=== PATIENT | female | born 1980 | race Caucasian/White ===

== ENCOUNTER 2016-02-26 14:28 | Emergency (ER) | payer OTHER ==
[~2016-02-26] VITALS: Ht 172.7 cm; Wt 119.1 kg
[~2016-02-26 14:28] MED LIST: ADVIL200 MG PO; ATORVASTATIN CA40 MG PO; AUGMENTIN875 MG PO; Ambien PO; BUSPAR10 MG PO; BUSPAR15 MG PO; BUSPIRONE HCL10 MG PO; Buspar PO; CYMBALTA30 MG PO; CYMBALTA60 MG PO; Cymbalta PO; DICYCLOMINE HCL20 MG PO; DULOXETINE HCL60 MG PO; FETZIMA40 MG PO; FETZIMA80 MG PO; FLONASE16 G1 BOTH NARES; GRALISE600 MG PO; KLONOPIN0.5 M1 PO; KLONOPIN1 MG PO; LEVOTHYROXINE125 MCG PO; LEVOTHYROXINE150 MCG PO; LIPITOR40 MG PO; LITHIUM CARBON300 MG PO; LOPRESSOR50 MG PO; Levothroid,Synthroid PO; Lopressor PO; METOPROLOL SUCC50 MG PO; MOTRIN600 MG PO; NAPROSYN500 MG PO; NEURONTIN100 MG PO; NEURONTIN300 MG PO; NEURONTIN600 MG PO; OXCARBAZEPINE300 MG PO; QUETIAPINE FUM200 MG PO; SEROQUEL100 MG PO; SEROQUEL200 MG PO; SEROQUEL50 MG PO; SYNTHROID150 MCG PO; TRILEPTAL300 MG PO; TYLENOL EXTRA500 MG PO; ULTRAM50 MG PO; WELLBUTRIN SR150 MG PO; WELLBUTRIN XL300 MG PO; Wellbutrin PO; Wellbutrin SR PO
[2016-02-26 15:14] LABS: HEMATOCRIT 41.9 % (36.0-46.0); MCH 30.7 PG (29.0-34.0); MCHC 32.9 G/DL (30.0-36.0); MCV 93.1 FL (83-99); MEAN PLAT.VOLUME 8.7 uM^3 (9.5-12.4); PLATELET COUNT 330 K/uL (156-360); RBC DIS.WIDTH-SD 42.8 % (39-53); WHITE BLOOD COUNT 7.7 K/uL (4.1-10.2)
[2016-02-26 15:26] LABS: CHLORIDE 108 mEq/L (99-109); POTASSIUM 4.5 mEq/L (3.7-5.4); SODIUM 142 mEq/L (136-147)
[2016-02-26 15:28] LABS: GLUCOSE 118 mg/dL (70-99)
[2016-02-26 15:29] LABS: ANION GAP 9 MEQ/L (2-14)
[2016-02-26 15:32] LABS: GFR ESTIMATE (CALCULATED) > 59 mL/min/
[2016-02-26 15:33] LABS: UREA NITROGEN (BUN) 8 mg/dL (9-23)
[2016-02-26] MEDS ORDERED: TESSALON PERLE100 MG PO (17:15)
[2016-02-26] MEDS ORDERED: PREDNISONE20 MG PO (17:15)
[2016-02-26] MEDS ORDERED: PHENERGAN DM SYR1 ML PO (17:29)
[2016-02-26 17:30] VITALS: BP 105/58
== END 2016-02-26 17:47 | disposition home or self-care (01) ==
LOC: EME 14:28
DX: J06.9 Acute upper respiratory infection, unspecified (principal); I10 Essential (primary) hypertension; E78.5 Hyperlipidemia, unspecified; G89.29 Other chronic pain; E03.9 Hypothyroidism, unspecified; Z87.891 Personal history of nicotine dependence
CPT/HCPCS: 71020; 80048; 85027; 94640; 99281; 99284

== ENCOUNTER 2016-02-29 15:20 | Emergency (ER) | payer OTHER ==
[~2016-02-29] VITALS: Ht 172.7 cm; Wt 117.9 kg
[~2016-02-29 15:20] MED LIST changes: +PHENERGAN DM SYR1 ML PO; +PREDNISONE20 MG PO; +TESSALON PERLE100 MG PO
[2016-02-29 16:04] LABS: HEMATOCRIT 41.9 % (36.0-46.0); MCH 30.8 PG (29.0-34.0); MCHC 33.4 G/DL (30.0-36.0); MCV 92.3 FL (83-99); PLATELET COUNT 361 K/uL (156-360); RBC DIS.WIDTH-CV 13.3 % (11.8-14.6); RBC DIS.WIDTH-SD 43.2 % (39-53); RED BLOOD COUNT 4.54 M/uL (3.80-5.20)
[2016-02-29 16:05] LABS: WHITE BLOOD COUNT 12.8 K/uL (4.1-10.2)
[2016-02-29 16:07] LABS: CHLORIDE 106 mEq/L (99-109); POTASSIUM 4.4 mEq/L (3.7-5.4); SODIUM 140 mEq/L (136-147)
[2016-02-29 16:09] LABS: GLUCOSE 117 mg/dL (70-99)
[2016-02-29 16:10] LABS: ANION GAP 11 MEQ/L (2-14)
[2016-02-29 16:12] LABS: SERUM ETHYL ALCOHOL < 10 mg/dL
[2016-02-29 16:13] LABS: GFR ESTIMATE (CALCULATED) > 59 mL/min/; UREA NITROGEN (BUN) 14 mg/dL (9-23)
[2016-02-29 17:21] LABS: AMPHETAMINE NEGATIVE (500 ng/mL); BARBITURATES NEGATIVE (200 ng/mL); BENZODIAZEPINES NEGATIVE (150 ng/mL); COCAINE NEGATIVE (150 ng/mL); INTERNAL CONTROLS VALID? YES; METHADONE NEGATIVE (200 ng/mL); METHAMPHETAMINE NEGATIVE (500 ng/mL); OPIATES (MORPHINE) NEGATIVE (100 ng/mL); OXYCODONE NEGATIVE (100 ng/mL); PHENCYCLIDINE NEGATIVE (25 ng/mL); PROPOXYPHENE NEGATIVE (300 ng/mL); THC CANNABINOIDS NEGATIVE (50 ng/mL); TRICYCLIC ANTIDEPRESSANTS NEGATIVE (300 ng/mL)
[2016-02-29 23:25] VITALS: BP 115/80
== END 2016-02-29 23:37 | disposition home or self-care (01) ==
LOC: EME 15:20
DX: F33.2 Major depressive disorder, recurrent severe without psychotic features (principal); R45.851 Suicidal ideations; F60.3 Borderline personality disorder; E78.5 Hyperlipidemia, unspecified; I10 Essential (primary) hypertension; Z91.5 Personal history of self-harm; E03.9 Hypothyroidism, unspecified; Z88.6 Allergy status to analgesic agent
CPT/HCPCS: 80048; 85027; 90832; 99281; 99285; G0480

== ENCOUNTER 2016-03-02 18:28 | Inpatient (IN) | payer OTHER ==
[~2016-03-02] VITALS: Ht 172.7 cm; Wt 116.7 kg
[2016-03-02] MEDS ORDERED: PROAIR HFA8.5 GM IH (21:55)
[2016-03-02 22:06] LABS: CHLORIDE 107 mEq/L (99-109); POTASSIUM 4.1 mEq/L (3.7-5.4); SODIUM 141 mEq/L (136-147)
[2016-03-02 22:08] LABS: GLUCOSE 101 mg/dL (70-99)
[2016-03-02 22:09] LABS: ANION GAP 13 MEQ/L (2-14)
[2016-03-02 22:10] LABS: TOTAL BILIRUBIN 0.8 mg/dL (0.0-1.0)
[2016-03-02 22:11] LABS: SERUM ETHYL ALCOHOL < 10 mg/dL
[2016-03-02 22:12] LABS: ALKALINE PHOSPHATASE 89 IU/L (3-129); GFR ESTIMATE (CALCULATED) > 59 mL/min/
[2016-03-02 22:13] LABS: UREA NITROGEN (BUN) 15 mg/dL (9-23)
[2016-03-02 22:18] LABS: EOSINOPHIL (%) 1.2 % (0-5); EOSINOPHIL COUNT 0.1 K/uL (0-0.3); HEMATOCRIT 39.9 % (36.0-46.0); IMMATURE GRANULOCYTE (%) 0.2 % (0.0-0.7); IMMATURE GRANULOCYTE COUNT 0.2 K/uL; LYMPHOCYTE COUNT 2.6 K/uL (1.0-2.8); MCH 33.7 PG (29.0-34.0); MCHC 35.8 G/DL (30.0-36.0); MCV 94.1 FL (83-99); MEAN PLAT.VOLUME 9.3 uM^3 (9.5-12.4); MONOCYTE (%) 5.4 % (3-12); MONOCYTE COUNT 0.4 K/uL (0-0.8); NEUTROPHIL (%) 60.9 % (45-76); PLATELET COUNT 265 K/uL (156-360); RBC DIS.WIDTH-CV 13.1 % (11.8-14.6); RBC DIS.WIDTH-SD 41.9 % (39-53); RED BLOOD COUNT 4.24 M/uL (3.80-5.20)
[2016-03-02 22:19] LABS: WHITE BLOOD COUNT 8.2 K/uL (4.1-10.2)
[2016-03-02 22:23] LABS: QUANTITATIVE HCG < 4.0 MIU/ML
[2016-03-02 22:40] VITALS: BP 147/62
[2016-03-02 22:43] VITALS: BP 147/62
[2016-03-02] MEDS ORDERED: DEPAKOTE ER250 MG PO (22:47)
[2016-03-03 07:52] VITALS: BP 107/65
[2016-03-03 15:32] VITALS: BP 109/72
[2016-03-03 21:25] VITALS: BP 111/80
[2016-03-04 07:44] VITALS: BP 92/51
[2016-03-04 11:31] VITALS: BP 112/81
[2016-03-04 15:31] VITALS: BP 122/71
[2016-03-04 21:20] VITALS: BP 108/70
[2016-03-05 07:27] VITALS: BP 106/66
[2016-03-05 15:50] VITALS: BP 114/67
[2016-03-06 07:34] VITALS: BP 103/72
[2016-03-06 15:48] VITALS: BP 111/72
[2016-03-07 07:43] VITALS: BP 106/65
== END 2016-03-07 10:11 | disposition home or self-care (01) | DRG 883 ==
LOC: EME 18:28 → 1WEST 21:41 → EDOF 21:41 → 1WEST 22:36
PROVIDERS: Emergency Medicine
DX: F60.3 Borderline personality disorder (principal); F33.2 Major depressive disorder, recurrent severe without psychotic features; R45.851 Suicidal ideations; G47.30 Sleep apnea, unspecified; E03.9 Hypothyroidism, unspecified; K58.9 Irritable bowel syndrome, unspecified; M79.7 Fibromyalgia; Z62.810 Personal history of physical and sexual abuse in childhood; F41.9 Anxiety disorder, unspecified
CPT/HCPCS: 80048; 80053; 84702; 85025; 85027; 90832; 90839; 94640; 94640 76; 97150 GO; 97165 GO; 99202; 99281; 99285; G0480

== ENCOUNTER 2016-03-23 15:06 | Inpatient (IN) | payer OTHER ==
[~2016-03-23] VITALS: Ht 172.7 cm; Wt 122.1 kg
[~2016-03-23 15:06] MED LIST changes: +DEPAKOTE ER250 MG PO; +PROAIR HFA8.5 GM IH
[2016-03-23 16:43] LABS: HEMATOCRIT 38.4 % (36.0-46.0); MCH 31.6 PG (29.0-34.0); MCHC 34.1 G/DL (30.0-36.0); MCV 92.5 FL (83-99); MEAN PLAT.VOLUME 8.8 uM^3 (9.5-12.4); PLATELET COUNT 210 K/uL (156-360); RBC DIS.WIDTH-CV 13.6 % (11.8-14.6); RBC DIS.WIDTH-SD 45.1 % (39-53); RED BLOOD COUNT 4.15 M/uL (3.80-5.20); WHITE BLOOD COUNT 6.1 K/uL (4.1-10.2)
[2016-03-23 16:52] LABS: CHLORIDE 110 mEq/L (99-109); POTASSIUM 4.4 mEq/L (3.7-5.4); SODIUM 142 mEq/L (136-147)
[2016-03-23 16:52] LABS: ADD MIUA? NO; BILIRUBIN NEGATIVE; BLOOD NEGATIVE; COLOR YELLOW ((YELLOW)); GLUCOSE (STRIP) NEGATIVE; KETONES NEGATIVE; LEUKOCYTES NEGATIVE; NITRITE NEGATIVE; PROTEIN (STRIP) TRACE; UCUL ADDED? NO; UROBILINOGEN 0.2 MG/DL (0.2-1.0)
[2016-03-23 16:55] LABS: GLUCOSE 92 mg/dL (70-99)
[2016-03-23 16:56] LABS: ANION GAP 8 MEQ/L (2-14); TOTAL BILIRUBIN 0.8 mg/dL (0.0-1.0)
[2016-03-23 16:57] LABS: SERUM ETHYL ALCOHOL < 10 mg/dL
[2016-03-23 16:57] LABS: INTERNAL CONTROL VALID? YES
[2016-03-23 16:58] LABS: GFR ESTIMATE (CALCULATED) > 59 mL/min/
[2016-03-23 16:59] LABS: ALKALINE PHOSPHATASE 86 IU/L (3-129)
[2016-03-23 17:00] LABS: UREA NITROGEN (BUN) 11 mg/dL (9-23)
[2016-03-23 17:02] LABS: SALICYLATE < 5.0 MG/DL (15-30)
[2016-03-23 17:18] LABS: AMPHETAMINE NEGATIVE (500 ng/mL); BARBITURATES NEGATIVE (200 ng/mL); BENZODIAZEPINES NEGATIVE (150 ng/mL); COCAINE NEGATIVE (150 ng/mL); INTERNAL CONTROLS VALID? YES; METHADONE NEGATIVE (200 ng/mL); METHAMPHETAMINE NEGATIVE (500 ng/mL); OPIATES (MORPHINE) NEGATIVE (100 ng/mL); OXYCODONE NEGATIVE (100 ng/mL); PHENCYCLIDINE NEGATIVE (25 ng/mL); PROPOXYPHENE NEGATIVE (300 ng/mL); THC CANNABINOIDS NEGATIVE (50 ng/mL); TRICYCLIC ANTIDEPRESSANTS PRESUMPTIVE POSITIVE (300 ng/mL)
[2016-03-23] MEDS ORDERED: DEPAKOTE ER500 MG PO (18:05)
[2016-03-23] MEDS ORDERED: SEROQUEL12.5 MG PO (18:05)
[2016-03-23 19:52] VITALS: BP 130/86
[2016-03-23 19:53] VITALS: BP 130/86
[2016-03-24 07:59] VITALS: BP 113/59
[2016-03-24 16:17] VITALS: BP 89/54
[2016-03-25 07:55] VITALS: BP 103/57
== END 2016-03-25 13:38 | disposition home or self-care (01) | DRG 885 ==
LOC: EME 15:06 → 1WEST 18:48 → EDOF 18:48 → 1WEST 19:51
PROVIDERS: Emergency Medicine
DX: F33.1 Major depressive disorder, recurrent, moderate (principal); F60.3 Borderline personality disorder; R45.851 Suicidal ideations; I10 Essential (primary) hypertension; E78.5 Hyperlipidemia, unspecified; G89.29 Other chronic pain; M54.9 Dorsalgia, unspecified; M79.7 Fibromyalgia; G43.909 Migraine, unspecified, not intractable, without status migrainosus; Z88.5 Allergy status to narcotic agent; Z91.19 Patient's noncompliance with other medical treatment and regimen
CPT/HCPCS: 80053; 81003; 84703; 85027; 90839; 94640; 97150 GO; 99202; 99281; 99285; G0480

== ENCOUNTER 2016-04-04 15:48 | Emergency (ER) | payer OTHER ==
[~2016-04-04] VITALS: Ht 172.7 cm; Wt 97.9 kg
[~2016-04-04 15:48] MED LIST changes: +DEPAKOTE ER500 MG PO; +SEROQUEL12.5 MG PO
[2016-04-04 16:56] LABS: HEMATOCRIT 37.3 % (36.0-46.0); MCH 31.5 PG (29.0-34.0); MCHC 33.8 G/DL (30.0-36.0); MCV 93.3 FL (83-99); MEAN PLAT.VOLUME 9.2 uM^3 (9.5-12.4); PLATELET COUNT 177 K/uL (156-360); RBC DIS.WIDTH-CV 13.5 % (11.8-14.6); RBC DIS.WIDTH-SD 44.5 % (39-53); WHITE BLOOD COUNT 5.9 K/uL (4.1-10.2)
[2016-04-04 17:08] LABS: CHLORIDE 108 mEq/L (99-109); POTASSIUM 4.3 mEq/L (3.7-5.4); SODIUM 141 mEq/L (136-147)
[2016-04-04 17:10] LABS: GLUCOSE 122 mg/dL (70-99)
[2016-04-04 17:11] LABS: ANION GAP 8 MEQ/L (2-14)
[2016-04-04 17:13] LABS: GFR ESTIMATE (CALCULATED) > 59 mL/min/; SERUM ETHYL ALCOHOL < 10 mg/dL
[2016-04-04 17:14] LABS: UREA NITROGEN (BUN) 12 mg/dL (9-23)
[2016-04-04 17:21] LABS: QUANTITATIVE HCG < 4.0 MIU/ML
[2016-04-04 18:23] LABS: ADD MIUA? NO; BILIRUBIN NEGATIVE; BLOOD NEGATIVE; COLOR YELLOW ((YELLOW)); GLUCOSE (STRIP) NEGATIVE; KETONES NEGATIVE; LEUKOCYTES NEGATIVE; NITRITE NEGATIVE; PROTEIN (STRIP) NEGATIVE; SPECIFIC GRAVITY 1.012 (1.000-1.030); UCUL ADDED? NO; UROBILINOGEN 0.2 MG/DL (0.2-1.0)
[2016-04-04 19:38] LABS: AMPHETAMINE NEGATIVE (500 ng/mL); BARBITURATES NEGATIVE (200 ng/mL); BENZODIAZEPINES NEGATIVE (150 ng/mL); COCAINE NEGATIVE (150 ng/mL); INTERNAL CONTROLS VALID? YES; METHADONE NEGATIVE (200 ng/mL); METHAMPHETAMINE NEGATIVE (500 ng/mL); OPIATES (MORPHINE) NEGATIVE (100 ng/mL); OXYCODONE NEGATIVE (100 ng/mL); PHENCYCLIDINE NEGATIVE (25 ng/mL); PROPOXYPHENE NEGATIVE (300 ng/mL); THC CANNABINOIDS NEGATIVE (50 ng/mL); TRICYCLIC ANTIDEPRESSANTS NEGATIVE (300 ng/mL)
[2016-04-04 23:44] VITALS: BP 115/61
== END 2016-04-05 00:01 ==
LOC: EME 15:48
PROVIDERS: Emergency Medicine
DX: F33.2 Major depressive disorder, recurrent severe without psychotic features (principal); R73.9 Hyperglycemia, unspecified; F60.3 Borderline personality disorder; R45.851 Suicidal ideations; Z73.3 Stress, not elsewhere classified; I10 Essential (primary) hypertension; E78.5 Hyperlipidemia, unspecified; E03.9 Hypothyroidism, unspecified
CPT/HCPCS: 80048; 81003; 84702; 85027; 90837; 99281; 99285; G0480

== ENCOUNTER 2016-05-11 13:50 | Emergency (ER) | payer OTHER ==
[~2016-05-11] VITALS: Ht 172.7 cm; Wt 125.6 kg
[2016-05-11 14:32] LABS: HEMATOCRIT 40.3 % (36.0-46.0); MCH 31.3 PG (29.0-34.0); MCHC 33.5 G/DL (30.0-36.0); MCV 93.5 FL (83-99); MEAN PLAT.VOLUME 9.2 uM^3 (9.5-12.4); PLATELET COUNT 175 K/uL (156-360); RBC DIS.WIDTH-CV 12.4 % (11.8-14.6); RBC DIS.WIDTH-SD 43.2 % (39-53); RED BLOOD COUNT 4.31 M/uL (3.80-5.20); WHITE BLOOD COUNT 5.5 K/uL (4.1-10.2)
[2016-05-11 14:42] LABS: CHLORIDE 106 mEq/L (99-109)
[2016-05-11 14:43] LABS: POTASSIUM 4.3 mEq/L (3.7-5.4); SODIUM 140 mEq/L (136-147)
[2016-05-11 14:44] LABS: GLUCOSE 107 mg/dL (70-99)
[2016-05-11 14:46] LABS: ANION GAP 7 MEQ/L (2-14)
[2016-05-11 14:47] LABS: SERUM ETHYL ALCOHOL < 10 mg/dL
[2016-05-11 14:48] LABS: GFR ESTIMATE (CALCULATED) > 59 mL/min/
[2016-05-11 14:49] LABS: UREA NITROGEN (BUN) 8 mg/dL (9-23)
[2016-05-11 14:58] LABS: QUANTITATIVE HCG < 4.0 MIU/ML
[2016-05-11] MEDS ORDERED: DEPAKOTE500 MG PO (15:17)
[2016-05-11] MEDS ORDERED: SEROQUEL50 MG PO (15:18)
[2016-05-11 15:49] LABS: AMPHETAMINE NEGATIVE (500 ng/mL); BARBITURATES NEGATIVE (200 ng/mL); BENZODIAZEPINES NEGATIVE (150 ng/mL); COCAINE NEGATIVE (150 ng/mL); INTERNAL CONTROLS VALID? YES; METHADONE NEGATIVE (200 ng/mL); METHAMPHETAMINE NEGATIVE (500 ng/mL); OPIATES (MORPHINE) NEGATIVE (100 ng/mL); OXYCODONE NEGATIVE (100 ng/mL); PHENCYCLIDINE NEGATIVE (25 ng/mL); PROPOXYPHENE NEGATIVE (300 ng/mL); THC CANNABINOIDS NEGATIVE (50 ng/mL); TRICYCLIC ANTIDEPRESSANTS NEGATIVE (300 ng/mL)
[2016-05-11 16:02] VITALS: BP 135/67
== END 2016-05-11 16:03 | disposition home or self-care (01) ==
LOC: EME 13:50
PROVIDERS: Emergency Medicine
DX: F33.1 Major depressive disorder, recurrent, moderate (principal); F41.9 Anxiety disorder, unspecified; F60.3 Borderline personality disorder; I10 Essential (primary) hypertension; E78.5 Hyperlipidemia, unspecified; E03.9 Hypothyroidism, unspecified
CPT/HCPCS: 80048; 84702; 85027; 90839; 99281; 99285; G0480

== ENCOUNTER 2016-05-31 14:13 | Emergency (ER) | payer OTHER ==
[~2016-05-31] VITALS: Ht 172.7 cm; Wt 125.8 kg
[~2016-05-31 14:13] MED LIST changes: +DEPAKOTE500 MG PO
[2016-05-31 14:30] VITALS: BP 121/80
== END 2016-05-31 16:10 | disposition home or self-care (01) ==
LOC: EME 14:13
DX: S60.222A Contusion of left hand, initial encounter (principal); X79.XXXA Intentional self-harm by blunt object, initial encounter
CPT/HCPCS: 73130; 99281; 99283

== ENCOUNTER 2016-06-13 12:38 | Inpatient (IN) | payer OTHER ==
[~2016-06-13] VITALS: Ht 172.7 cm; Wt 125.9 kg
[2016-06-13 13:33] LABS: HEMATOCRIT 39.8 % (36.0-46.0); MCH 30.9 PG (29.0-34.0); MCHC 33.4 G/DL (30.0-36.0); MCV 92.6 FL (83-99); MEAN PLAT.VOLUME 8.9 uM^3 (9.5-12.4); PLATELET COUNT 183 K/uL (156-360); RBC DIS.WIDTH-CV 12.3 % (11.8-14.6); RBC DIS.WIDTH-SD 41.8 % (39-53); WHITE BLOOD COUNT 5.6 K/uL (4.1-10.2)
[2016-06-13 13:49] LABS: CHLORIDE 104 mEq/L (99-109); POTASSIUM 4.7 mEq/L (3.7-5.4); SODIUM 139 mEq/L (136-147)
[2016-06-13 13:51] LABS: GLUCOSE 105 mg/dL (70-99)
[2016-06-13 13:52] LABS: ANION GAP 11 MEQ/L (2-14)
[2016-06-13 13:54] LABS: SERUM ETHYL ALCOHOL < 10 mg/dL
[2016-06-13 13:55] LABS: GFR ESTIMATE (CALCULATED) > 59 mL/min/
[2016-06-13 13:56] LABS: UREA NITROGEN (BUN) 11 mg/dL (9-23)
[2016-06-13 13:59] LABS: AMPHETAMINE NEGATIVE (500 ng/mL); BARBITURATES NEGATIVE (200 ng/mL); BENZODIAZEPINES NEGATIVE (150 ng/mL); COCAINE NEGATIVE (150 ng/mL); INTERNAL CONTROLS VALID? YES; METHADONE NEGATIVE (200 ng/mL); METHAMPHETAMINE NEGATIVE (500 ng/mL); OPIATES (MORPHINE) NEGATIVE (100 ng/mL); OXYCODONE NEGATIVE (100 ng/mL); PHENCYCLIDINE NEGATIVE (25 ng/mL); PROPOXYPHENE NEGATIVE (300 ng/mL); THC CANNABINOIDS NEGATIVE (50 ng/mL); TRICYCLIC ANTIDEPRESSANTS PRESUMPTIVE POSITIVE (300 ng/mL)
[2016-06-13 14:04] LABS: QUANTITATIVE HCG < 4.0 MIU/ML
[2016-06-13 20:45] VITALS: BP 118/79
[2016-06-14 07:53] VITALS: BP 95/50
[2016-06-14 11:44] VITALS: BP 120/83
[2016-06-14 15:34] VITALS: BP 112/74
[2016-06-15 07:39] VITALS: BP 89/54
[2016-06-15 12:04] VITALS: BP 115/74
[2016-06-15 16:12] VITALS: BP 91/47
[2016-06-16 08:13] VITALS: BP 113/62
== END 2016-06-16 11:43 | disposition home or self-care (01) | DRG 885 ==
LOC: EME 12:38 → EDOF 19:14 → 1WEST 19:14
DX: F33.1 Major depressive disorder, recurrent, moderate (principal); F60.3 Borderline personality disorder; R56.9 Unspecified convulsions; Z68.41 Body mass index [BMI] 40.0-44.9, adult; R45.851 Suicidal ideations; I10 Essential (primary) hypertension; E66.3 Overweight; E78.00 Pure hypercholesterolemia, unspecified; G43.909 Migraine, unspecified, not intractable, without status migrainosus; M79.7 Fibromyalgia; K58.9 Irritable bowel syndrome, unspecified; M48.00 Spinal stenosis, site unspecified; G47.30 Sleep apnea, unspecified; E03.9 Hypothyroidism, unspecified; Z90.49 Acquired absence of other specified parts of digestive tract; F43.20 Adjustment disorder, unspecified
CPT/HCPCS: 80048; 84702; 85027; 90839; 99281; 99285; G0480

== ENCOUNTER 2016-06-28 14:31 | Day surgery (SDC) | payer OTHER ==
[~2016-06-28] VITALS: Ht 172.7 cm; Wt 125.9 kg
[~2016-06-28 14:31] MED LIST changes: +GABAPENTIN600 MG PO
== END 2016-06-28 16:15 | disposition home or self-care (01) ==
LOC: PAIN 14:31 → SDC 15:00 → PAIN 15:00
DX: M51.16 Intervertebral disc disorders with radiculopathy, lumbar region (principal); G62.9 Polyneuropathy, unspecified; I10 Essential (primary) hypertension; F41.8 Other specified anxiety disorders; E78.1 Pure hyperglyceridemia; E03.9 Hypothyroidism, unspecified; G47.33 Obstructive sleep apnea (adult) (pediatric)
CPT/HCPCS: J1100; J2250; J3010

== ENCOUNTER 2016-07-03 17:52 | Inpatient (IN) | payer OTHER ==
[~2016-07-03] VITALS: Ht 172.7 cm; Wt 124.0 kg
[2016-07-03] MEDS ORDERED: GRALISE600 MG PO (19:09)
[2016-07-03] MEDS ORDERED: DEPAKOTE ER500 MG PO (19:09)
[2016-07-03] MEDS ORDERED: HYDROXYZINE HCL25 MG PO (19:10)
[2016-07-03 19:15] LABS: HEMATOCRIT 40.5 % (36.0-46.0); MCH 31.1 PG (29.0-34.0); MCHC 33.8 G/DL (30.0-36.0); MEAN PLAT.VOLUME 8.6 uM^3 (9.5-12.4); PLATELET COUNT 227 K/uL (156-360); RBC DIS.WIDTH-CV 12.1 % (11.8-14.6); RBC DIS.WIDTH-SD 40.8 % (39-53); WHITE BLOOD COUNT 6.9 K/uL (4.1-10.2)
[2016-07-03 19:31] LABS: CHLORIDE 108 mEq/L (99-109); POTASSIUM 4.6 mEq/L (3.7-5.4); SODIUM 143 mEq/L (136-147)
[2016-07-03 19:34] LABS: GLUCOSE 106 mg/dL (70-99)
[2016-07-03 19:35] LABS: ANION GAP 10 MEQ/L (2-14); TOTAL BILIRUBIN 0.2 mg/dL (0.0-1.0)
[2016-07-03 19:36] LABS: SERUM ETHYL ALCOHOL < 10 mg/dL
[2016-07-03 19:37] LABS: ALKALINE PHOSPHATASE 77 IU/L (3-129); GFR ESTIMATE (CALCULATED) > 59 mL/min/
[2016-07-03 19:38] LABS: UREA NITROGEN (BUN) 12 mg/dL (9-23)
[2016-07-03 20:51] VITALS: BP 120/66
[2016-07-04 07:26] VITALS: BP 105/56
[2016-07-04 15:30] VITALS: BP 104/59
[2016-07-04 17:02] LABS: POINT-OF-CARE METER ID UU13113830; POINT-OF-CARE USER ID BHSMEW
[2016-07-05 07:19] VITALS: BP 108/68
[2016-07-05 15:24] VITALS: BP 133/87
[2016-07-06 07:37] VITALS: BP 99/52
[2016-07-06 15:08] VITALS: BP 99/53
[2016-07-07 07:43] VITALS: BP 136/78
[2016-07-07] MEDS ORDERED: DIVALPROEX SOD500 MG PO ×2 (09:49)
[2016-07-07] MEDS ORDERED: GABAPENTIN600 MG PO (09:50)
== END 2016-07-07 11:44 | DRG 885 ==
LOC: EME 17:52 → 1WEST 18:48 → EDOF 18:48 → 1WEST 18:48
PROVIDERS: Emergency Medicine; Psychiatry & Neurology Psychiatry
DX: F33.2 Major depressive disorder, recurrent severe without psychotic features (principal); R45.851 Suicidal ideations; Z68.41 Body mass index [BMI] 40.0-44.9, adult; F60.3 Borderline personality disorder; I10 Essential (primary) hypertension; E03.9 Hypothyroidism, unspecified; M79.7 Fibromyalgia; E78.5 Hyperlipidemia, unspecified; G89.29 Other chronic pain; M54.9 Dorsalgia, unspecified; G47.10 Hypersomnia, unspecified; G43.909 Migraine, unspecified, not intractable, without status migrainosus; G62.9 Polyneuropathy, unspecified; E66.9 Obesity, unspecified; Z56.0 Unemployment, unspecified; R45.4 Irritability and anger
CPT/HCPCS: 80053; 80164; 81003; 82948; 85027; 90837; 97150 GO; 97165 GO; 99281; 99285; G0480; Q0177

== ENCOUNTER 2016-08-04 11:18 | Emergency (ER) | payer OTHER ==
[~2016-08-04] VITALS: Ht 172.7 cm; Wt 116.4 kg
[~2016-08-04 11:18] MED LIST changes: +DIVALPROEX SOD500 MG PO; +HYDROXYZINE HCL25 MG PO
[2016-08-04 12:07] LABS: HEMATOCRIT 41.3 % (36.0-46.0); MCH 31.9 PG (29.0-34.0); MCHC 35.1 G/DL (30.0-36.0); MCV 90.8 FL (83-99); MEAN PLAT.VOLUME 9.5 uM^3 (9.5-12.4); PLATELET COUNT 280 K/uL (156-360); RBC DIS.WIDTH-CV 12.3 % (11.8-14.6); RBC DIS.WIDTH-SD 40.8 % (39-53); RED BLOOD COUNT 4.55 M/uL (3.80-5.20); WHITE BLOOD COUNT 4.1 K/uL (4.1-10.2)
[2016-08-04 12:21] LABS: CHLORIDE 106 mEq/L (99-109); POTASSIUM 3.9 mEq/L (3.7-5.4); SODIUM 138 mEq/L (136-147)
[2016-08-04 12:23] LABS: GLUCOSE 103 mg/dL (70-99)
[2016-08-04 12:24] LABS: ANION GAP 10 MEQ/L (2-14)
[2016-08-04 12:27] LABS: GFR ESTIMATE (CALCULATED) > 59 mL/min/
[2016-08-04 12:28] LABS: UREA NITROGEN (BUN) 11 mg/dL (9-23)
[2016-08-04 12:32] LABS: TROP-I INTERPRETATION NEGATIVE; TROPONIN-I < 0.01 ng/mL (0.0-0.30)
[2016-08-04 14:22] LABS: D-DIMER ELISA 0.23 mg/L FEU (< 0.57)
[2016-08-04 14:59] VITALS: BP 117/73
== END 2016-08-04 15:00 | disposition home or self-care (01) ==
LOC: EME 11:18 → RME 11:18
PROVIDERS: Nurse Practitioner Family
DX: R07.89 Other chest pain (principal); R06.00 Dyspnea, unspecified; F41.9 Anxiety disorder, unspecified; M54.89 Other dorsalgia; R20.2 Paresthesia of skin; R42 Dizziness and giddiness; I10 Essential (primary) hypertension; E78.5 Hyperlipidemia, unspecified; E03.9 Hypothyroidism, unspecified; Z90.49 Acquired absence of other specified parts of digestive tract
CPT/HCPCS: 71020; 80048; 84484; 85027; 85379; 93005; 99281; 99284

== ENCOUNTER 2016-08-09 13:24 | Emergency (ER) | payer OTHER ==
[~2016-08-09] VITALS: Ht 172.7 cm; Wt 120.4 kg
[2016-08-09 14:37] LABS: HEMATOCRIT 37.5 % (36.0-46.0); MCHC 33.6 G/DL (30.0-36.0); MCV 92.4 FL (83-99); MEAN PLAT.VOLUME 9.4 uM^3 (9.5-12.4); PLATELET COUNT 227 K/uL (156-360); RBC DIS.WIDTH-CV 12.3 % (11.8-14.6); RBC DIS.WIDTH-SD 41.9 % (39-53); RED BLOOD COUNT 4.06 M/uL (3.80-5.20); WHITE BLOOD COUNT 4.2 K/uL (4.1-10.2)
[2016-08-09 14:46] LABS: CHLORIDE 109 mEq/L (99-109); POTASSIUM 4.2 mEq/L (3.7-5.4); SODIUM 140 mEq/L (136-147)
[2016-08-09 14:48] LABS: GLUCOSE 93 mg/dL (70-99)
[2016-08-09 14:50] LABS: ANION GAP 7 MEQ/L (2-14)
[2016-08-09 14:51] LABS: SERUM ETHYL ALCOHOL < 10 mg/dL
[2016-08-09 14:52] LABS: GFR ESTIMATE (CALCULATED) > 59 mL/min/
[2016-08-09 14:53] LABS: UREA NITROGEN (BUN) 9 mg/dL (9-23)
[2016-08-09 16:10] LABS: AMPHETAMINE NEGATIVE (500 ng/mL); BARBITURATES NEGATIVE (200 ng/mL); BENZODIAZEPINES NEGATIVE (150 ng/mL); COCAINE NEGATIVE (150 ng/mL); INTERNAL CONTROLS VALID? YES; METHADONE NEGATIVE (200 ng/mL); METHAMPHETAMINE NEGATIVE (500 ng/mL); OPIATES (MORPHINE) NEGATIVE (100 ng/mL); OXYCODONE NEGATIVE (100 ng/mL); PHENCYCLIDINE NEGATIVE (25 ng/mL); PROPOXYPHENE NEGATIVE (300 ng/mL); THC CANNABINOIDS NEGATIVE (50 ng/mL); TRICYCLIC ANTIDEPRESSANTS NEGATIVE (300 ng/mL)
[2016-08-09 18:55] VITALS: BP 135/101
== END 2016-08-09 18:56 | disposition home or self-care (01) ==
LOC: EME 13:24
DX: F32.9 Major depressive disorder, single episode, unspecified (principal); E78.5 Hyperlipidemia, unspecified; I10 Essential (primary) hypertension; E03.9 Hypothyroidism, unspecified; Z88.6 Allergy status to analgesic agent
CPT/HCPCS: 80048; 85027; 90839; 99281; 99283; G0480

== ENCOUNTER 2016-08-26 13:21 | Inpatient (IN) | payer OTHER ==
[~2016-08-26] VITALS: Ht 172.7 cm; Wt 121.0 kg
[2016-08-26] MEDS ORDERED: GABAPENTIN400 MG PO (14:28)
[2016-08-26] MEDS ORDERED: ALPRAZOLAM0.5 MG PO (14:29)
[2016-08-26] MEDS ORDERED: CLONAZEPAM1 MG PO (14:29)
[2016-08-26 14:30] LABS: HEMATOCRIT 39.9 % (36.0-46.0); MCH 31.5 PG (29.0-34.0); MCHC 33.8 G/DL (30.0-36.0); MEAN PLAT.VOLUME 9.1 uM^3 (9.5-12.4); PLATELET COUNT 228 K/uL (156-360); RBC DIS.WIDTH-CV 12.3 % (11.8-14.6); RBC DIS.WIDTH-SD 42.3 % (39-53); RED BLOOD COUNT 4.29 M/uL (3.80-5.20); WHITE BLOOD COUNT 6.4 K/uL (4.1-10.2)
[2016-08-26 14:41] LABS: CHLORIDE 108 mEq/L (99-109); POTASSIUM 4.6 mEq/L (3.7-5.4); SODIUM 140 mEq/L (136-147)
[2016-08-26 14:42] LABS: GLUCOSE 102 mg/dL (70-99)
[2016-08-26 14:44] LABS: ANION GAP 7 MEQ/L (2-14)
[2016-08-26 14:46] LABS: GFR ESTIMATE (CALCULATED) > 59 mL/min/; SERUM ETHYL ALCOHOL < 10 mg/dL
[2016-08-26 14:47] LABS: UREA NITROGEN (BUN) 9 mg/dL (9-23)
[2016-08-26 14:52] LABS: AMPHETAMINE NEGATIVE (500 ng/mL); BENZODIAZEPINES NEGATIVE (150 ng/mL); COCAINE NEGATIVE (150 ng/mL); METHAMPHETAMINE NEGATIVE (500 ng/mL); OPIATES (MORPHINE) NEGATIVE (100 ng/mL); PHENCYCLIDINE NEGATIVE (25 ng/mL); THC CANNABINOIDS NEGATIVE (50 ng/mL)
[2016-08-26 14:53] LABS: BARBITURATES NEGATIVE (200 ng/mL); INTERNAL CONTROLS VALID? YES; METHADONE NEGATIVE (200 ng/mL); OXYCODONE NEGATIVE (100 ng/mL); PROPOXYPHENE NEGATIVE (300 ng/mL); TRICYCLIC ANTIDEPRESSANTS PRESUMPTIVE POSITIVE (300 ng/mL)
[2016-08-26 14:56] LABS: QUANTITATIVE HCG < 4.0 MIU/ML
[2016-08-26 19:35] VITALS: BP 146/96
[2016-08-27 07:28] VITALS: BP 106/67
[2016-08-27 15:25] VITALS: BP 130/75
[2016-08-28 07:28] VITALS: BP 117/81
[2016-08-28 16:19] VITALS: BP 123/79
[2016-08-29 07:52] VITALS: BP 123/76
[2016-08-29 15:24] VITALS: BP 128/91
[2016-08-30 07:39] VITALS: BP 126/76
[2016-08-30 15:19] VITALS: BP 128/84
[2016-08-31 07:39] VITALS: BP 115/66
[2016-08-31 15:27] VITALS: BP 111/58
[2016-09-01 07:48] VITALS: BP 102/59
[2016-09-01 15:37] VITALS: BP 103/55
[2016-09-02 07:20] VITALS: BP 107/61
[2016-09-02 15:14] VITALS: BP 127/88
[2016-09-03 07:22] VITALS: BP 106/66
[2016-09-03 16:24] VITALS: BP 114/68
[2016-09-04 07:56] VITALS: BP 125/63
[2016-09-04 15:50] VITALS: BP 116/63
[2016-09-05 07:43] VITALS: BP 132/76
[2016-09-05 15:25] VITALS: BP 113/66
[2016-09-06 07:49] VITALS: BP 111/55
[2016-09-06 15:38] VITALS: BP 116/64
[2016-09-07 07:05] VITALS: BP 129/87
[2016-09-07 15:37] VITALS: BP 151/91
[2016-09-08 07:22] VITALS: BP 127/80
[2016-09-08 15:35] VITALS: BP 132/66
[2016-09-09 07:29] VITALS: BP 104/61
[2016-09-09 15:19] VITALS: BP 112/67
[2016-09-10 07:24] VITALS: BP 112/68
[2016-09-10 15:22] VITALS: BP 120/56
[2016-09-11 07:30] VITALS: BP 114/72
[2016-09-11 15:32] VITALS: BP 144/72
[2016-09-12 07:36] VITALS: BP 111/63
[2016-09-12 15:24] VITALS: BP 118/68
[2016-09-13 07:50] VITALS: BP 115/67
[2016-09-13 15:39] VITALS: BP 117/87
[2016-09-14 07:30] VITALS: BP 122/68
[2016-09-14 15:44] VITALS: BP 129/85
[2016-09-15 07:48] VITALS: BP 117/70
[2016-09-15 16:01] VITALS: BP 119/64
[2016-09-16 07:52] VITALS: BP 107/52
[2016-09-16 15:39] VITALS: BP 126/78
[2016-09-17 07:43] VITALS: BP 105/59
[2016-09-17 15:37] VITALS: BP 112/57
[2016-09-18 07:43] VITALS: BP 113/75
[2016-09-18 15:48] VITALS: BP 112/57
[2016-09-19 07:37] VITALS: BP 120/70
[2016-09-19 15:17] VITALS: BP 117/75
[2016-09-20 07:47] VITALS: BP 108/67
[2016-09-20 15:29] VITALS: BP 119/83
[2016-09-21 07:42] VITALS: BP 118/72
[2016-09-21] MEDS ORDERED: BUSPIRONE HCL10 MG PO (13:11)
[2016-09-21] MEDS ORDERED: LEVOTHYROXINE150 MCG PO (13:11)
[2016-09-21] MEDS ORDERED: GABAPENTIN400 MG PO (13:11)
[2016-09-21] MEDS ORDERED: SEROQUEL50 MG PO (13:11)
[2016-09-21] MEDS ORDERED: CLONAZEPAM1 MG PO (13:11)
[2016-09-21] MEDS ORDERED: CYMBALTA60 MG PO (13:11)
[2016-09-21] MEDS ORDERED: NAPROSYN250 MG PO (13:11)
[2016-09-21] MEDS ORDERED: DICYCLOMINE HCL20 MG PO (13:11)
[2016-09-21] MEDS ORDERED: ATORVASTATIN CA40 MG PO (13:11)
[2016-09-21 15:24] VITALS: BP 129/78
[2016-09-22 07:49] VITALS: BP 100/57
== END 2016-09-22 11:16 | DRG 885 ==
LOC: EME 13:21 → 1WEST 18:30 → EDOF 18:30 → 1WEST 19:26 → 2SOUTH 08-27 10:51 → 1WEST 08-27 10:52
DX: F33.2 Major depressive disorder, recurrent severe without psychotic features (principal); R45.851 Suicidal ideations; F60.3 Borderline personality disorder; M75.41 Impingement syndrome of right shoulder; M79.7 Fibromyalgia; G47.30 Sleep apnea, unspecified; I10 Essential (primary) hypertension; E78.5 Hyperlipidemia, unspecified; E03.9 Hypothyroidism, unspecified; M48.00 Spinal stenosis, site unspecified; G43.909 Migraine, unspecified, not intractable, without status migrainosus; Z62.810 Personal history of physical and sexual abuse in childhood; Z91.5 Personal history of self-harm; Z81.8 Family history of other mental and behavioral disorders
CPT/HCPCS: 73030; 80048; 84702; 85027; 90839; 97150 GO; 97166 GO; 99281; 99285; G0480; Q0177

== ENCOUNTER 2016-11-22 08:15 | Day surgery (SDC) | payer OTHER ==
[~2016-11-22] VITALS: Ht 172.7 cm; Wt 122.0 kg
[~2016-11-22 08:15] MED LIST changes: +ALPRAZOLAM0.5 MG PO; +BENTYL20 MG PO; +CLONAZEPAM1 MG PO; +GABAPENTIN400 MG PO; +NAPROSYN250 MG PO; +NEURONTIN800 MG PO
== END 2016-11-22 09:50 | disposition home or self-care (01) ==
LOC: PAIN 08:15 → SDC 09:15 → PAIN 09:15
DX: M51.16 Intervertebral disc disorders with radiculopathy, lumbar region (principal); M48.061 Spinal stenosis, lumbar region without neurogenic claudication; M79.7 Fibromyalgia; I10 Essential (primary) hypertension; E03.9 Hypothyroidism, unspecified; G47.33 Obstructive sleep apnea (adult) (pediatric); F41.8 Other specified anxiety disorders; E78.1 Pure hyperglyceridemia; G62.9 Polyneuropathy, unspecified
CPT/HCPCS: J1100; J2250; J3010

== ENCOUNTER 2016-11-24 16:26 | Inpatient (IN) | payer OTHER ==
[~2016-11-24] VITALS: Ht 172.7 cm; Wt 118.5 kg
[2016-11-24 17:02] LABS: HEMATOCRIT 38.9 % (36.0-46.0); MCH 30.7 PG (29.0-34.0); MCHC 33.2 G/DL (30.0-36.0); MCV 92.6 FL (83-99); MEAN PLAT.VOLUME 8.7 uM^3 (9.5-12.4); PLATELET COUNT 183 K/uL (156-360); RBC DIS.WIDTH-CV 12.5 % (11.8-14.6); RBC DIS.WIDTH-SD 42.3 % (39-53); WHITE BLOOD COUNT 6.5 K/uL (4.1-10.2)
[2016-11-24 17:16] LABS: CHLORIDE 104 mEq/L (99-109); SODIUM 139 mEq/L (136-147)
[2016-11-24 17:18] LABS: GLUCOSE 98 mg/dL (70-99)
[2016-11-24 17:19] LABS: ANION GAP 9 MEQ/L (2-14)
[2016-11-24 17:21] LABS: SERUM ETHYL ALCOHOL < 10 mg/dL
[2016-11-24 17:22] LABS: GFR ESTIMATE (CALCULATED) > 59 mL/min/
[2016-11-24 17:23] LABS: UREA NITROGEN (BUN) 14 mg/dL (9-23)
[2016-11-24 17:31] LABS: AMPHETAMINE NEGATIVE (500 ng/mL); BARBITURATES NEGATIVE (200 ng/mL); BENZODIAZEPINES NEGATIVE (150 ng/mL); COCAINE NEGATIVE (150 ng/mL); INTERNAL CONTROLS VALID? YES; METHADONE NEGATIVE (200 ng/mL); METHAMPHETAMINE NEGATIVE (500 ng/mL); OPIATES (MORPHINE) NEGATIVE (100 ng/mL); OXYCODONE NEGATIVE (100 ng/mL); PHENCYCLIDINE NEGATIVE (25 ng/mL); PROPOXYPHENE NEGATIVE (300 ng/mL); THC CANNABINOIDS NEGATIVE (50 ng/mL); TRICYCLIC ANTIDEPRESSANTS NEGATIVE (300 ng/mL)
[2016-11-24 17:33] LABS: QUANTITATIVE HCG < 4.0 MIU/ML
[2016-11-24 19:48] VITALS: BP 134/94
[2016-11-25 07:33] VITALS: BP 139/73
[2016-11-25 14:50] VITALS: BP 109/67
[2016-11-26 08:09] VITALS: BP 116/61
[2016-11-26 15:51] VITALS: BP 125/80
[2016-11-27 07:48] VITALS: BP 109/61
[2016-11-27 15:28] VITALS: BP 96/54
[2016-11-28 07:47] VITALS: BP 122/79
== END 2016-11-28 14:47 | disposition home or self-care (01) | DRG 885 ==
LOC: EME 16:26 → EDOF 18:00 → 1WEST 18:00 → ENRESERV 19:00 → 1WEST 19:02
DX: F33.1 Major depressive disorder, recurrent, moderate (principal); F60.3 Borderline personality disorder; R45.851 Suicidal ideations; Z68.41 Body mass index [BMI] 40.0-44.9, adult; M79.7 Fibromyalgia; E03.9 Hypothyroidism, unspecified; E78.5 Hyperlipidemia, unspecified; I10 Essential (primary) hypertension; K58.9 Irritable bowel syndrome, unspecified; G47.30 Sleep apnea, unspecified; Z90.49 Acquired absence of other specified parts of digestive tract; Z81.8 Family history of other mental and behavioral disorders
CPT/HCPCS: 80048; 84702; 85027; 90837; 97150 GO; 97165 GO; 99281; 99285; G0480

== ENCOUNTER 2016-12-15 11:56 | Observation (INO) | payer OTHER ==
[~2016-12-15] VITALS: Ht 172.7 cm; Wt 123.0 kg
[2016-12-15 12:18] LABS: HEMATOCRIT 37.8 % (36.0-46.0); MCH 31.4 PG (29.0-34.0); MCHC 34.1 G/DL (30.0-36.0); MEAN PLAT.VOLUME 9.2 uM^3 (9.5-12.4); PLATELET COUNT 219 K/uL (156-360); RBC DIS.WIDTH-CV 12.4 % (11.8-14.6); RBC DIS.WIDTH-SD 42.1 % (39-53); RED BLOOD COUNT 4.11 M/uL (3.80-5.20); WHITE BLOOD COUNT 4.4 K/uL (4.1-10.2)
[2016-12-15 12:30] LABS: CHLORIDE 110 mEq/L (99-109); POTASSIUM 4.7 mEq/L (3.7-5.4); SODIUM 143 mEq/L (136-147)
[2016-12-15 12:32] LABS: GLUCOSE 95 mg/dL (70-99)
[2016-12-15 12:33] LABS: ANION GAP 9 MEQ/L (2-14)
[2016-12-15 12:35] LABS: GFR ESTIMATE (CALCULATED) > 59 mL/min/
[2016-12-15 12:36] LABS: UREA NITROGEN (BUN) 11 mg/dL (9-23)
[2016-12-15 12:39] LABS: TROP-I INTERPRETATION NEGATIVE; TROPONIN-I < 0.01 ng/mL (0.0-0.30)
[2016-12-15] MEDS ORDERED: NAPROSYN500 MG PO (17:37)
[2016-12-15] MEDS ORDERED: SEROQUEL50 MG PO (17:41)
[2016-12-15 18:02] VITALS: BP 128/80
[2016-12-15 19:26] LABS: TROP-I INTERPRETATION NEGATIVE; TROPONIN-I < 0.01 ng/mL (0.0-0.30)
[2016-12-15 19:44] VITALS: BP 125/80
[2016-12-16 00:51] VITALS: BP 113/59
[2016-12-16 01:15] LABS: TROP-I INTERPRETATION NEGATIVE; TROPONIN-I < 0.01 ng/mL (0.0-0.30)
[2016-12-16 04:00] VITALS: BP 107/69
[2016-12-16 06:26] LABS: HDL CHOLESTEROL 36 MG/DL (Desirable>=50); LDL CHOLESTEROL 68 mg/dL (Desirable<100); NON-HDL CHOLESTEROL 98 mg/dL (Desirable<160); TOTAL CHOLESTEROL 134 mg/dL (Desirable<200); TRIGLYCERIDES 148 MG/DL (Normal: <150)
[2016-12-16 07:50] VITALS: BP 109/59
[2016-12-16 10:49] VITALS: BP 124/77
== END 2016-12-16 11:37 | disposition home or self-care (01) ==
LOC: EME 11:56 → EDOF 16:41 → 5WEST 16:41 → ENRESERV 16:51 → 5WEST 17:55
PROVIDERS: Hospitalist; Physician Assistant
DX: R07.2 Precordial pain (principal); G47.33 Obstructive sleep apnea (adult) (pediatric); E66.01 Morbid (severe) obesity due to excess calories; Z68.41 Body mass index [BMI] 40.0-44.9, adult; Z71.3 Dietary counseling and surveillance; E03.9 Hypothyroidism, unspecified; I10 Essential (primary) hypertension; E78.00 Pure hypercholesterolemia, unspecified; M79.7 Fibromyalgia; K58.9 Irritable bowel syndrome, unspecified; F32.9 Major depressive disorder, single episode, unspecified; Z91.5 Personal history of self-harm; Z90.49 Acquired absence of other specified parts of digestive tract; Z79.82 Long term (current) use of aspirin; Z82.49 Family history of ischemic heart disease and other diseases of the circulatory system; Z83.3 Family history of diabetes mellitus
CPT/HCPCS: 71020; 80048; 80061; 83036; 84484; 85027; 85379; 93005; 94660; 99281; 99285; G0378; J1644

== ENCOUNTER 2017-01-09 22:23 | Emergency (ER) | payer OTHER ==
[~2017-01-09] VITALS: Ht 172.7 cm; Wt 122.1 kg
[2017-01-10 00:03] VITALS: BP 135/81
== END 2017-01-10 00:12 | disposition home or self-care (01) ==
LOC: EME 22:23
PROC: 2W39X1Z Immobilization of Left Upper Extremity using Splint (ICD-10-PCS; principal; 2017-01-09)
DX: S60.222A Contusion of left hand, initial encounter (principal); F41.9 Anxiety disorder, unspecified; F32.9 Major depressive disorder, single episode, unspecified; F60.3 Borderline personality disorder; X79.XXXA Intentional self-harm by blunt object, initial encounter; Z91.5 Personal history of self-harm; E78.5 Hyperlipidemia, unspecified; I10 Essential (primary) hypertension; M79.7 Fibromyalgia; E03.9 Hypothyroidism, unspecified; R56.9 Unspecified convulsions; Z88.5 Allergy status to narcotic agent
CPT/HCPCS: 73130; 90839; 99281; 99284

== ENCOUNTER 2017-01-14 20:01 | Emergency (ER) | payer OTHER ==
[~2017-01-14] VITALS: Ht 172.7 cm; Wt 121.0 kg
[2017-01-14 21:43] LABS: HEMATOCRIT 37.4 % (36.0-46.0); MCH 31.6 PG (29.0-34.0); MCHC 34.8 G/DL (30.0-36.0); MCV 90.8 FL (83-99); MEAN PLAT.VOLUME 9.2 uM^3 (9.5-12.4); PLATELET COUNT 248 K/uL (156-360); RBC DIS.WIDTH-CV 12.2 % (11.8-14.6); RBC DIS.WIDTH-SD 40.4 % (39-53); RED BLOOD COUNT 4.12 M/uL (3.80-5.20); WHITE BLOOD COUNT 4.7 K/uL (4.1-10.2)
[2017-01-14 21:53] LABS: CHLORIDE 107 mEq/L (99-109); POTASSIUM 4.6 mEq/L (3.7-5.4); SODIUM 138 mEq/L (136-147)
[2017-01-14 21:54] LABS: GLUCOSE 103 mg/dL (70-99)
[2017-01-14 21:56] LABS: ANION GAP 9 MEQ/L (2-14)
[2017-01-14 21:58] LABS: GFR ESTIMATE (CALCULATED) > 59 mL/min/; SERUM ETHYL ALCOHOL < 10 mg/dL
[2017-01-14 21:59] LABS: UREA NITROGEN (BUN) 12 mg/dL (9-23)
[2017-01-14 22:34] LABS: AMPHETAMINE NEGATIVE (500 ng/mL); COCAINE NEGATIVE (150 ng/mL); METHAMPHETAMINE NEGATIVE (500 ng/mL); OPIATES (MORPHINE) NEGATIVE (100 ng/mL); PHENCYCLIDINE NEGATIVE (25 ng/mL); THC CANNABINOIDS NEGATIVE (50 ng/mL)
[2017-01-14 22:35] LABS: BARBITURATES NEGATIVE (200 ng/mL); BENZODIAZEPINES NEGATIVE (150 ng/mL); INTERNAL CONTROLS VALID? YES; METHADONE NEGATIVE (200 ng/mL); OXYCODONE NEGATIVE (100 ng/mL); PROPOXYPHENE NEGATIVE (300 ng/mL); TRICYCLIC ANTIDEPRESSANTS NEGATIVE (300 ng/mL)
[2017-01-14 22:58] VITALS: BP 138/87
== END 2017-01-14 23:03 | disposition home or self-care (01) ==
LOC: EME 20:01
DX: F33.9 Major depressive disorder, recurrent, unspecified (principal); F60.3 Borderline personality disorder; E78.5 Hyperlipidemia, unspecified; I10 Essential (primary) hypertension; E03.9 Hypothyroidism, unspecified; R56.9 Unspecified convulsions; M79.7 Fibromyalgia; Z88.5 Allergy status to narcotic agent
CPT/HCPCS: 80048; 85027; 90839; 99281; 99283; G0480

== ENCOUNTER 2017-01-21 14:57 | Inpatient (IN) | payer OTHER ==
[~2017-01-21] VITALS: Ht 172.7 cm; Wt 118.9 kg
[2017-01-21 15:28] LABS: HEMATOCRIT 38.6 % (36.0-46.0); MCH 31.4 PG (29.0-34.0); MCHC 34.2 G/DL (30.0-36.0); MCV 91.7 FL (83-99); MEAN PLAT.VOLUME 8.9 uM^3 (9.5-12.4); PLATELET COUNT 197 K/uL (156-360); RBC DIS.WIDTH-CV 12.3 % (11.8-14.6); RED BLOOD COUNT 4.21 M/uL (3.80-5.20); WHITE BLOOD COUNT 4.6 K/uL (4.1-10.2)
[2017-01-21 15:36] LABS: ADD MIUA? NO; BILIRUBIN NEGATIVE; BLOOD NEGATIVE; COLOR YELLOW ((YELLOW)); GLUCOSE (STRIP) NEGATIVE; KETONES NEGATIVE; LEUKOCYTES NEGATIVE; NITRITE NEGATIVE; PROTEIN (STRIP) NEGATIVE; SPECIFIC GRAVITY 1.012 (1.000-1.030); UCUL ADDED? NO; UROBILINOGEN 0.2 MG/DL (0.2-1.0)
[2017-01-21 15:42] LABS: CHLORIDE 106 mEq/L (99-109); POTASSIUM 4.3 mEq/L (3.7-5.4); SODIUM 138 mEq/L (136-147)
[2017-01-21 15:42] LABS: INTERNAL CONTROL VALID? YES
[2017-01-21 15:44] LABS: GLUCOSE 99 mg/dL (70-99)
[2017-01-21 15:45] LABS: ANION GAP 7 MEQ/L (2-14)
[2017-01-21 15:47] LABS: AMPHETAMINE NEGATIVE (500 ng/mL); BARBITURATES NEGATIVE (200 ng/mL); BENZODIAZEPINES NEGATIVE (150 ng/mL); COCAINE NEGATIVE (150 ng/mL); INTERNAL CONTROLS VALID? YES; METHADONE NEGATIVE (200 ng/mL); METHAMPHETAMINE NEGATIVE (500 ng/mL); OPIATES (MORPHINE) NEGATIVE (100 ng/mL); OXYCODONE NEGATIVE (100 ng/mL); PHENCYCLIDINE NEGATIVE (25 ng/mL); PROPOXYPHENE NEGATIVE (300 ng/mL); THC CANNABINOIDS NEGATIVE (50 ng/mL); TRICYCLIC ANTIDEPRESSANTS PRESUMPTIVE POSITIVE (300 ng/mL)
[2017-01-21 15:47] LABS: SERUM ETHYL ALCOHOL < 10 mg/dL
[2017-01-21 15:48] LABS: GFR ESTIMATE (CALCULATED) > 59 mL/min/
[2017-01-21 15:49] LABS: UREA NITROGEN (BUN) 12 mg/dL (9-23)
[2017-01-21 18:31] VITALS: BP 133/92
[2017-01-22 07:49] VITALS: BP 124/79
[2017-01-22 15:54] VITALS: BP 132/84
[2017-01-23 07:43] VITALS: BP 109/63
[2017-01-23 15:25] VITALS: BP 115/72
[2017-01-24 07:41] VITALS: BP 94/56
[2017-01-24 09:32] VITALS: BP 123/83
[2017-01-24 15:29] VITALS: BP 121/84
[2017-01-24 18:31] VITALS: BP 129/87
[2017-01-25 07:56] VITALS: BP 93/55
[2017-01-25] MEDS ORDERED: SERTRALINE HCL100 MG PO (09:53)
== END 2017-01-25 11:38 | DRG 885 ==
LOC: EME 14:57 → 1WEST 17:03 → EDOF 17:03 → ENRESERV 17:56 → 1WEST 18:12
PROVIDERS: Emergency Medicine
DX: F33.2 Major depressive disorder, recurrent severe without psychotic features (principal); R45.851 Suicidal ideations; F60.3 Borderline personality disorder; I10 Essential (primary) hypertension; E78.5 Hyperlipidemia, unspecified; E03.9 Hypothyroidism, unspecified; M79.7 Fibromyalgia; S61.512A Laceration without foreign body of left wrist, initial encounter; X78.8XXA Intentional self-harm by other sharp object, initial encounter; E66.9 Obesity, unspecified; Z68.39 Body mass index [BMI] 39.0-39.9, adult; Z91.5 Personal history of self-harm; Z81.8 Family history of other mental and behavioral disorders
CPT/HCPCS: 80048; 81003; 84703; 85027; 90839; 97150 GO; 99281; 99285; G0480

== ENCOUNTER 2017-03-28 14:06 | Inpatient (IN) | payer OTHER ==
[~2017-03-28] VITALS: Ht 172.7 cm; Wt 120.6 kg
[~2017-03-28 14:06] MED LIST changes: +SERTRALINE HCL100 MG PO
[2017-03-28 15:15] LABS: BASOPHIL (%) 0.5 % (0-1); EOSINOPHIL (%) 1.2 % (0-5); EOSINOPHIL COUNT 0.1 K/uL (0-0.3); HEMATOCRIT 39.8 % (36.0-46.0); HEMOGLOBIN 13.7 G/DL (11.9-15.5); IMMATURE GRANULOCYTE (%) 0.2 % (0.0-0.7); LYMPHOCYTE (%) 25.7 % (15-42); LYMPHOCYTE COUNT 1.7 K/uL (1.0-2.8); MCH 31.4 PG (29.0-34.0); MCHC 34.4 G/DL (30.0-36.0); MCV 91.3 FL (83-99); MONOCYTE (%) 4.8 % (3-12); MONOCYTE COUNT 0.3 K/uL (0-0.8); NEUTROPHIL (%) 67.6 % (45-76); NEUTROPHIL COUNT 4.4 K/uL (1.8-6.4); PLATELET COUNT 196 K/uL (156-360); RBC DIS.WIDTH-CV 11.9 % (11.8-14.6); RBC DIS.WIDTH-SD 40.4 % (39-53); RED BLOOD COUNT 4.36 M/uL (3.80-5.20); WHITE BLOOD COUNT 6.5 K/uL (4.1-10.2)
[2017-03-28 15:23] LABS: CHLORIDE 104 mEq/L (99-109); POTASSIUM 4.6 mEq/L (3.7-5.4); SODIUM 138 mEq/L (136-147)
[2017-03-28 15:25] LABS: GLUCOSE 101 mg/dL (70-99)
[2017-03-28 15:28] LABS: CREATININE 0.8 mg/dL (0.6-1.3); GFR ESTIMATE (CALCULATED) > 59 mL/min/; SERUM ETHYL ALCOHOL < 10 mg/dL
[2017-03-28 15:29] LABS: UREA NITROGEN (BUN) 15 mg/dL (9-23)
[2017-03-28 15:41] LABS: QUANTITATIVE HCG < 4.0 MIU/ML
[2017-03-28 16:04] LABS: APPEARANCE CLEAR ((CLEAR)); BILIRUBIN NEGATIVE; BLOOD NEGATIVE; COLOR YELLOW ((YELLOW)); GLUCOSE (STRIP) NEGATIVE; KETONES NEGATIVE; LEUKOCYTES NEGATIVE; NITRITE NEGATIVE; PROTEIN (STRIP) NEGATIVE; SPECIFIC GRAVITY 1.009 (1.000-1.030); UROBILINOGEN 0.2 MG/DL (0.2-1.0)
[2017-03-28 16:18] LABS: AMPHETAMINE NEGATIVE (500 ng/mL); BARBITURATES NEGATIVE (200 ng/mL); BENZODIAZEPINES NEGATIVE (150 ng/mL); BUPRENORPHINE NEGATIVE (10 ng/mL); COCAINE NEGATIVE (150 ng/mL); METHADONE NEGATIVE (200 ng/mL); METHAMPHETAMINE NEGATIVE (500 ng/mL); OPIATES (MORPHINE) NEGATIVE (100 ng/mL); OXYCODONE NEGATIVE (100 ng/mL); PHENCYCLIDINE NEGATIVE (25 ng/mL); PROPOXYPHENE NEGATIVE (300 ng/mL); THC CANNABINOIDS NEGATIVE (50 ng/mL); TRICYCLIC ANTIDEPRESSANTS NEGATIVE (300 ng/mL)
[2017-03-28] MEDS ORDERED: NEURONTIN400 MG PO (18:17)
[2017-03-28] MEDS ORDERED: TYLENOL EXTRA500 MG PO (18:17)
[2017-03-28] MEDS ORDERED: BRINTELLIX5 MG PO (18:17)
[2017-03-28] MEDS ORDERED: NEOSPORIN + P28.3 GM TP (18:18)
[2017-03-28 19:23] VITALS: BP 136/96
[2017-03-28 19:24] VITALS: BP 136/96
[2017-03-29 07:45] VITALS: BP 106/52
[2017-03-29 15:30] VITALS: BP 117/75
[2017-03-30 07:37] VITALS: BP 97/52
[2017-03-30 15:33] VITALS: BP 104/58
[2017-03-31 07:34] VITALS: BP 106/64
[2017-03-31] MEDS ORDERED: BRINTELLIX5 MG PO (09:20)
== END 2017-03-31 11:52 | disposition home or self-care (01) | DRG 885 ==
LOC: EME 14:06 → EDOF 17:26 → 1WEST 17:26 → ENRESERV 19:15 → 1WEST 19:15
PROVIDERS: Emergency Medicine
DX: F33.2 Major depressive disorder, recurrent severe without psychotic features (principal); R45.851 Suicidal ideations; F60.3 Borderline personality disorder; E03.9 Hypothyroidism, unspecified; G47.30 Sleep apnea, unspecified; M79.7 Fibromyalgia; M48.00 Spinal stenosis, site unspecified; E78.5 Hyperlipidemia, unspecified; I10 Essential (primary) hypertension; K58.9 Irritable bowel syndrome, unspecified; Z68.41 Body mass index [BMI] 40.0-44.9, adult; Z81.8 Family history of other mental and behavioral disorders
CPT/HCPCS: 80048; 81003; 84702; 85025; 90839; 97150 GO; 97165 GO; 99281; 99285; G0480; Q0177

== ENCOUNTER 2017-04-16 12:27 | Emergency (ER) | payer OTHER ==
[~2017-04-16] VITALS: Ht 172.7 cm; Wt 121.6 kg
[~2017-04-16 12:27] MED LIST changes: +BRINTELLIX5 MG PO; +NEOSPORIN + P28.3 GM TP; +NEURONTIN400 MG PO
[2017-04-16 13:43] LABS: HEMATOCRIT 38.5 % (36.0-46.0); HEMOGLOBIN 13.2 G/DL (11.9-15.5); MCH 31.7 PG (29.0-34.0); MCHC 34.3 G/DL (30.0-36.0); MCV 92.5 FL (83-99); PLATELET COUNT 244 K/uL (156-360); RBC DIS.WIDTH-CV 12.2 % (11.8-14.6); RBC DIS.WIDTH-SD 41.8 % (39-53); RED BLOOD COUNT 4.16 M/uL (3.80-5.20); WHITE BLOOD COUNT 5.1 K/uL (4.1-10.2)
[2017-04-16 13:52] LABS: ALBUMIN 4.2 g/dL (3.2-4.8); CHLORIDE 107 mEq/L (99-109)
[2017-04-16 13:53] LABS: POTASSIUM 4.6 mEq/L (3.7-5.4); SODIUM 138 mEq/L (136-147)
[2017-04-16 13:55] LABS: GLUCOSE 93 mg/dL (70-99)
[2017-04-16 13:57] LABS: TOTAL BILIRUBIN 0.4 mg/dL (0.0-1.0)
[2017-04-16 13:58] LABS: ALKALINE PHOSPHATASE 100 IU/L (3-129); CREATININE 0.8 mg/dL (0.6-1.3); GFR ESTIMATE (CALCULATED) > 59 mL/min/
[2017-04-16 14:00] LABS: AST (GOT) 14 IU/L (2-34); UREA NITROGEN (BUN) 11 mg/dL (9-23)
[2017-04-16 14:01] LABS: ALT (GPT) 20 IU/L (3-49)
[2017-04-16 14:08] LABS: QUANTITATIVE HCG < 4.0 MIU/ML
[2017-04-16 15:14] LABS: APPEARANCE CLEAR ((CLEAR)); BILIRUBIN NEGATIVE; BLOOD SMALL; COLOR YELLOW ((YELLOW)); GLUCOSE (STRIP) NEGATIVE; KETONES NEGATIVE; LEUKOCYTES NEGATIVE; NITRITE NEGATIVE; PROTEIN (STRIP) NEGATIVE; SPECIFIC GRAVITY 1.017 (1.000-1.030); UROBILINOGEN 0.2 MG/DL (0.2-1.0)
[2017-04-16 15:22] LABS: BACTERIA NONE SEEN /HPF; EPITHELIAL CELLS RARE /HPF; MUCUS TRACE /LPF; RED BLOOD CELLS 0-5 /HPF (0-5); UCUL ADDED? NO; WHITE BLOOD CELLS 0-5 /HPF (0-5)
[2017-04-16] MEDS ORDERED: NORCO 5/3251 TABLET PO (19:27)
[2017-04-16 19:34] VITALS: BP 138/78
== END 2017-04-16 19:35 | disposition home or self-care (01) ==
LOC: EME 12:27
DX: R10.12 Left upper quadrant pain (principal); M79.7 Fibromyalgia; E78.5 Hyperlipidemia, unspecified; I10 Essential (primary) hypertension; G43.909 Migraine, unspecified, not intractable, without status migrainosus; R56.9 Unspecified convulsions; D64.9 Anemia, unspecified; F32.9 Major depressive disorder, single episode, unspecified; E03.9 Hypothyroidism, unspecified; Z88.5 Allergy status to narcotic agent; Z88.8 Allergy status to other drugs, medicaments and biological substances; G47.30 Sleep apnea, unspecified; K58.9 Irritable bowel syndrome, unspecified
CPT/HCPCS: 74177; 80053; 81003; 84702; 85027; 99281; 99284; J1885; J7030

== ENCOUNTER 2017-04-18 14:50 | Inpatient (IN) | payer OTHER ==
[~2017-04-18] VITALS: Ht 172.7 cm; Wt 120.4 kg
[~2017-04-18 14:50] MED LIST changes: +NORCO 5/3251 TABLET PO
[2017-04-18 15:36] LABS: HEMATOCRIT 38.1 % (36.0-46.0); HEMOGLOBIN 13.1 G/DL (11.9-15.5); MCH 31.8 PG (29.0-34.0); MCHC 34.4 G/DL (30.0-36.0); MCV 92.5 FL (83-99); PLATELET COUNT 252 K/uL (156-360); RBC DIS.WIDTH-CV 12.2 % (11.8-14.6); RBC DIS.WIDTH-SD 41.2 % (39-53); RED BLOOD COUNT 4.12 M/uL (3.80-5.20); WHITE BLOOD COUNT 4.8 K/uL (4.1-10.2)
[2017-04-18 15:45] LABS: CHLORIDE 106 mEq/L (99-109); POTASSIUM 4.6 mEq/L (3.7-5.4); SODIUM 138 mEq/L (136-147)
[2017-04-18 15:47] LABS: GLUCOSE 95 mg/dL (70-99)
[2017-04-18 15:50] LABS: SERUM ETHYL ALCOHOL < 10 mg/dL
[2017-04-18 15:51] LABS: CREATININE 0.8 mg/dL (0.6-1.3); GFR ESTIMATE (CALCULATED) > 59 mL/min/
[2017-04-18 15:52] LABS: UREA NITROGEN (BUN) 10 mg/dL (9-23)
[2017-04-18] MEDS ORDERED: BRINTELLIX10 MG PO (16:42)
[2017-04-18 17:21] LABS: AMPHETAMINE NEGATIVE (500 ng/mL); BARBITURATES NEGATIVE (200 ng/mL); BENZODIAZEPINES NEGATIVE (150 ng/mL); BUPRENORPHINE NEGATIVE (10 ng/mL); COCAINE NEGATIVE (150 ng/mL); METHADONE NEGATIVE (200 ng/mL); METHAMPHETAMINE NEGATIVE (500 ng/mL); OPIATES (MORPHINE) NEGATIVE (100 ng/mL); OXYCODONE NEGATIVE (100 ng/mL); PHENCYCLIDINE NEGATIVE (25 ng/mL); PROPOXYPHENE NEGATIVE (300 ng/mL); THC CANNABINOIDS NEGATIVE (50 ng/mL); TRICYCLIC ANTIDEPRESSANTS NEGATIVE (300 ng/mL)
[2017-04-18 19:21] VITALS: BP 149/89
[2017-04-18] MEDS ORDERED: BENTYL20 MG PO (20:01)
[2017-04-19 07:45] VITALS: BP 122/84
[2017-04-19 15:15] VITALS: BP 132/83
[2017-04-20 07:52] VITALS: BP 96/51
[2017-04-20 15:32] VITALS: BP 120/78
[2017-04-21 07:37] VITALS: BP 79/44
[2017-04-21] MEDS ORDERED: RITALIN5 MG PO (08:48)
== END 2017-04-21 09:59 | disposition home or self-care (01) | DRG 885 ==
LOC: EME 14:50 → 1WEST 16:10 → EDOF 16:10 → ENRESERV 19:05 → 1WEST 19:06
PROVIDERS: Emergency Medicine Emergency Medical Services
DX: F33.2 Major depressive disorder, recurrent severe without psychotic features (principal); F60.3 Borderline personality disorder; R45.851 Suicidal ideations; F41.9 Anxiety disorder, unspecified; E03.9 Hypothyroidism, unspecified; I10 Essential (primary) hypertension; E78.5 Hyperlipidemia, unspecified; M79.7 Fibromyalgia; K58.9 Irritable bowel syndrome, unspecified; G47.30 Sleep apnea, unspecified; M48.00 Spinal stenosis, site unspecified; Z56.0 Unemployment, unspecified
CPT/HCPCS: 80048; 85027; 90839; 97150 GO; 97165 GO; 99281; 99285; G0480

== ENCOUNTER 2017-04-30 22:14 | Emergency (ER) | payer OTHER ==
[~2017-04-30] VITALS: Ht 172.7 cm; Wt 123.8 kg
[~2017-04-30 22:14] MED LIST changes: +BRINTELLIX10 MG PO; +RITALIN5 MG PO
[2017-04-30] MEDS ORDERED: FLEXERIL10 MG PO (23:12)
[2017-05-01 00:27] VITALS: BP 104/75
== END 2017-05-01 00:51 | disposition home or self-care (01) ==
LOC: EME 22:14
DX: M54.16 Radiculopathy, lumbar region (principal); M48.061 Spinal stenosis, lumbar region without neurogenic claudication; M46.96 Unspecified inflammatory spondylopathy, lumbar region; I10 Essential (primary) hypertension; E78.5 Hyperlipidemia, unspecified; E03.9 Hypothyroidism, unspecified; G47.30 Sleep apnea, unspecified; M79.7 Fibromyalgia; K58.9 Irritable bowel syndrome, unspecified; R56.9 Unspecified convulsions; F41.9 Anxiety disorder, unspecified; F32.9 Major depressive disorder, single episode, unspecified; Z87.39 Personal history of other diseases of the musculoskeletal system and connective tissue; Z98.890 Other specified postprocedural states; Z90.49 Acquired absence of other specified parts of digestive tract; Z91.5 Personal history of self-harm; Z88.5 Allergy status to narcotic agent; Z88.8 Allergy status to other drugs, medicaments and biological substances; Z91.018 Allergy to other foods
CPT/HCPCS: 72131; 99281; 99284; J2270

== ENCOUNTER 2017-05-03 10:55 | Inpatient (IN) | payer OTHER ==
[~2017-05-03] VITALS: Ht 172.7 cm; Wt 121.2 kg
[~2017-05-03 10:55] MED LIST changes: +FLEXERIL10 MG PO
[2017-05-03 12:09] LABS: BASOPHIL (%) 0.5 % (0-1); EOSINOPHIL (%) 2.2 % (0-5); EOSINOPHIL COUNT 0.1 K/uL (0-0.3); HEMOGLOBIN 13.2 G/DL (11.9-15.5); LYMPHOCYTE (%) 27.1 % (15-42); LYMPHOCYTE COUNT 1.5 K/uL (1.0-2.8); MCH 31.6 PG (29.0-34.0); MCHC 33.8 G/DL (30.0-36.0); MCV 93.3 FL (83-99); MONOCYTE COUNT 0.3 K/uL (0-0.8); NEUTROPHIL (%) 65.2 % (45-76); NEUTROPHIL COUNT 3.6 K/uL (1.8-6.4); PLATELET COUNT 186 K/uL (156-360); RBC DIS.WIDTH-CV 12.4 % (11.8-14.6); RBC DIS.WIDTH-SD 42.1 % (39-53); RED BLOOD COUNT 4.18 M/uL (3.80-5.20); WHITE BLOOD COUNT 5.6 K/uL (4.1-10.2)
[2017-05-03 12:16] LABS: APPEARANCE SL.HAZY ((CLEAR)); BILIRUBIN NEGATIVE; BLOOD NEGATIVE; COLOR YELLOW ((YELLOW)); GLUCOSE (STRIP) NEGATIVE; KETONES NEGATIVE; LEUKOCYTES SMALL; NITRITE NEGATIVE; PROTEIN (STRIP) NEGATIVE; SPECIFIC GRAVITY 1.009 (1.000-1.030); UROBILINOGEN 0.2 MG/DL (0.2-1.0)
[2017-05-03 12:19] LABS: BACTERIA NONE SEEN /HPF; EPITHELIAL CELLS 2+ /HPF; MUCUS TRACE /LPF; RED BLOOD CELLS 0-5 /HPF (0-5); UCUL ADDED? NO; WHITE BLOOD CELLS 0-5 /HPF (0-5)
[2017-05-03 12:23] LABS: PTT 33.6 SEC (25-37)
[2017-05-03 12:39] LABS: TROP-I INTERPRETATION NEGATIVE; TROPONIN-I < 0.01 ng/mL (0.0-0.30)
[2017-05-03 12:58] LABS: HDL CHOLESTEROL 41 MG/DL (Desirable>=50); LDL CHOLESTEROL 74 mg/dL (Desirable<100); NON-HDL CHOLESTEROL 99 mg/dL (Desirable<160); TOTAL CHOLESTEROL 140 mg/dL (Desirable<200); TRIGLYCERIDES 124 MG/DL (Normal: <150)
[2017-05-03 13:40] LABS: CHLORIDE 107 MEQ/L (99-109); CREATININE 0.6 MG/DL (0.6-1.3); GFR ESTIMATE (CALCULATED) > 59 mL/min/; GLUCOSE 105 mg/dL (70-99); POTASSIUM 4.7 MEQ/L (3.7-5.4); SODIUM 141 MEQ/L (136-147); UREA NITROGEN (BUN) 12 mg/dL (9-23)
[2017-05-03] MEDS ORDERED: LIPITOR40 MG PO (14:43)
[2017-05-03] MEDS ORDERED: BUSPAR10 MG PO (14:44)
[2017-05-03] MEDS ORDERED: FLEXERIL10 MG PO (14:45)
[2017-05-03] MEDS ORDERED: ATARAX,VISTARIL50 MG PO (14:51)
[2017-05-03 14:58] LABS: HEMOGLOBIN A1c (GLYCOHEMOGLOB) 5.2 % (Below 5.7)
[2017-05-03 20:04] LABS: TROP-I INTERPRETATION NEGATIVE; TROPONIN-I < 0.01 ng/mL (0.0-0.30)
[2017-05-03 21:00] VITALS: BP 126/73
[2017-05-03 23:58] LABS: BENZODIAZEPINES, URINE SCREEN Negative (200 ng/mL)
[2017-05-04] VITALS: BP 114/70
[2017-05-04 00:52] LABS: TROP-I INTERPRETATION NEGATIVE; TROPONIN-I < 0.01 ng/mL (0.0-0.30)
[2017-05-04 03:41] VITALS: BP 128/70
[2017-05-04 10:03] LABS: TREPONEMA ANTIBODY NEGATIVE (NEGATIVE)
[2017-05-04 10:16] VITALS: BP 111/80
[2017-05-04] MEDS ORDERED: ASPIR 8181 M1 PO (11:14)
[2017-05-04 12:14] VITALS: BP 132/87
[2017-05-07 02:16] LABS: Folate, RBC 37.4 % (())
== END 2017-05-04 13:31 | disposition home or self-care (01) | DRG 65 ==
LOC: EME 10:55 → EDOF 15:26 → 5SOUTH 15:26 → ENRESERV 15:32 → 5SOUTH 19:39
PROVIDERS: Emergency Medicine; Internal Medicine
DX: I63.9 Cerebral infarction, unspecified (principal); M48.00 Spinal stenosis, site unspecified; I10 Essential (primary) hypertension; M54.16 Radiculopathy, lumbar region; R13.10 Dysphagia, unspecified; F33.9 Major depressive disorder, recurrent, unspecified; E78.5 Hyperlipidemia, unspecified; G47.33 Obstructive sleep apnea (adult) (pediatric); G25.3 Myoclonus; F60.3 Borderline personality disorder; E03.9 Hypothyroidism, unspecified; K58.9 Irritable bowel syndrome, unspecified; M79.7 Fibromyalgia; F17.210 Nicotine dependence, cigarettes, uncomplicated; R29.703 NIHSS score 3; Z82.49 Family history of ischemic heart disease and other diseases of the circulatory system; Z83.3 Family history of diabetes mellitus
CPT/HCPCS: 70450; 70544; 70551; 71045; 80048; 80061; 80306 90; 81003; 82607; 82747 90; 83036; 84484; 85025; 85610; 85652; 85730; 86780; 92610 GN; 93005; 93306; 93880; 99281; 99285; G8996 GN CI; G8998 GN CH; J1200; J1650; J7042

== ENCOUNTER 2017-07-12 21:46 | Emergency (ER) | payer OTHER ==
[~2017-07-12] VITALS: Ht 172.7 cm; Wt 120.9 kg
[~2017-07-12 21:46] MED LIST changes: +ASPIR 8181 M1 PO; +ATARAX,VISTARIL50 MG PO
[2017-07-12 22:53] LABS: HEMOGLOBIN 12.9 G/DL (11.9-15.5); MCH 32.3 PG (29.0-34.0); MCHC 35.8 G/DL (30.0-36.0); PLATELET COUNT 186 K/uL (156-360); RBC DIS.WIDTH-CV 12.6 % (11.8-14.6); RBC DIS.WIDTH-SD 41.7 % (39-53); WHITE BLOOD COUNT 5.4 K/uL (4.1-10.2)
[2017-07-12 23:02] LABS: CHLORIDE 108 mEq/L (99-109); POTASSIUM 3.8 mEq/L (3.7-5.4); SODIUM 139 mEq/L (136-147)
[2017-07-12 23:04] LABS: GLUCOSE 117 mg/dL (70-99)
[2017-07-12 23:08] LABS: CREATININE 0.7 mg/dL (0.6-1.3); GFR ESTIMATE (CALCULATED) > 59 mL/min/
[2017-07-12 23:09] LABS: UREA NITROGEN (BUN) 11 mg/dL (9-23)
[2017-07-13 02:30] VITALS: BP 124/88
== END 2017-07-13 02:34 | disposition home or self-care (01) ==
LOC: EME 21:46
DX: R51 Headache (principal); M79.7 Fibromyalgia; I10 Essential (primary) hypertension; E78.5 Hyperlipidemia, unspecified; E03.9 Hypothyroidism, unspecified; G47.30 Sleep apnea, unspecified; R56.9 Unspecified convulsions; K58.9 Irritable bowel syndrome, unspecified; M48.00 Spinal stenosis, site unspecified; F41.9 Anxiety disorder, unspecified; F32.9 Major depressive disorder, single episode, unspecified; Z90.49 Acquired absence of other specified parts of digestive tract; Z88.5 Allergy status to narcotic agent; Z88.8 Allergy status to other drugs, medicaments and biological substances
CPT/HCPCS: 70450; 71046; 80048; 85027; 93005; 99281; 99285; J2765; J7030